=== PATIENT | male | born 1945 | race Caucasian/White ===

== ENCOUNTER 2021-12-24 12:19 | Emergency (ER) | payer BC, MEDICARE ==
[~2021-12-24] VITALS: Ht 170.2 cm; Wt 77.0 kg
[2021-12-24 17:25] LABS: BASOPHILS % 0.7 % (0.0-2.0); EOSINOPHILS % 4.1 % (0.0-5.0); HEMATOCRIT. 40.4 % (42.0-52.0); HEMOGLOBIN. 13.7 g/dL (14.0-18.0); LYMPHOCYTES % 28.8 % (20.0-50.0); MEAN CORPUSCULAR VOLUME 91.7 fL (80.0-94.0); MEAN PLATELET VOLUME 7.5 fl (7.4-10.4); MONOCYTES % 9.3 % (2.0-8.0); NEUTROPHILS % 57.1 % (40.0-76.0); PLATELET 216 x1000/uL (130-400); RED BLOOD CELL COUNT 4.41 mill/uL (4.7-6.1); RED CELL DISTRIBUTION WIDTH 15.1 % (11.6-14.6)
[2021-12-24 17:29] LABS: CLARITY URINE CLEAR (CLEAR); COLOR URINE YELLOW (YELLOW); KETONES URINE 1+ (NEGATIVE); LEUKOCYTE ESTERASE URINE NEGATIVE (NEGATIVE); NITRITE URINE NEGATIVE (NEGATIVE); OCCULT BLOOD URINE 1+ (NEGATIVE); PROTEIN URINE NEGATIVE (NEGATIVE); SPECIFIC GRAVITY URINE 1.027 (1.005-1.030)
[2021-12-24 17:34] LABS: CHLORIDE 105 mEq/L (98-107)
[2021-12-24] MEDS ORDERED: KETOROLAC 30MG/ML VIAL IM NR (18:30)
[2021-12-24 18:31] VITALS: BP 129/71
== END 2021-12-24 19:41 | disposition home or self-care (01) ==
LOC: ER 12:19
DX: R10.31 Right lower quadrant pain (principal); R31.9 Hematuria, unspecified
CPT/HCPCS: 36415; 74176; 80053; 81003; 85025; 96372; 99284; J1885